=== PATIENT | female | born 1965 | race Caucasian/White ===

== ENCOUNTER 2018-04-26 11:02 | Inpatient (IN) | payer OTHER ==
[~2018-04-26] VITALS: Ht 175.3 cm; Wt 81.2 kg
[~2018-04-26 11:02] MED LIST: ADVIL MIGRAINE200 M1 PO; ALPRAZOLAM0.25 M1 PO; ASPIRIN EC81 M1 PO; ATORVASTATIN CA10 M1 PO; AUGMENTIN 875-1 EACH PO; FIORICET 325 MG1 TAB PO; KETOROLAC TROME10 M1 PO; LYRICA50 MG PO; PERCOCET 325 MG1 TA2 PO; PRINIVIL 5MG5 MG PO; SPIRIVA RESPIMAT4 GM INH; VOLTAREN75 MG PO; ZITHROMAX Z-PA250 M1 PO
--- NOTE | 2018-04-26 12:18 | ED SKIN/ALLERGY COMPLAINT ---
History of Present Illness General Chief Complaint: General Adult Stated Complaint: CELLULITIS TO UPPER LIP,THROBBING TEETH Source: patient, old records Exam Limitations: no limitations Vital Signs & Intake/Output Vital Signs & Intake/Output Vital Signs Date Time Temp Pulse Resp B/P B/P Pulse O2 O2 Flow FiO2 Mean Ox Delivery Rate 04/26 1132 97.4 82 16 159/88 97 Room Air Allergies Coded Allergies: NO KNOWN ALLERGIES (NO) (01/13/11) Reconcile Medications Alprazolam 0.25 MG TABLET 1 TAB PO PRN ANXIETY (Reported) Amoxicillin/Potassium Clav (Augmentin 875-125 Tablet) 875 MG-125 MG TABLET 1 TAB PO BID cellulitis Aspirin (Ecotrin*) 81 MG TABLET.DR 81 MG PO DAILY HEART Ibuprofen (Advil Migraine) 200 MG CAPSULE 2 TAB PO PRN PAIN (Reported) Ketorolac Tromethamine 10 MG TABLET 1 TAB PO Q6P PRN pain Received IV ketorolac in ED Tiotropium Riley (Spiriva Respimat) 2.5 MCG/ACTUATION MIST.INHAL 2 PUFF INH PRN EMPHYSEMA (Reported) Triage Note: STATES THAT SHE WAS SEEN HERE THE OTHER DAY FOR L UPPER LIP INFECTION GIVEN A DOSE OF IV ABT AND SENT HOME ON PO ABT. FEELS HER TEETH ARE HURTING NOW Triage Nurses Notes Reviewed? yes Onset: Gradual Duration: day(s): Timing: recent history Severity: moderate Location: upper lip HPI: 52yo female with hx of HTN presents to ED complaining of worsening upper lip cellulitis. Patient was seen and evaluated here on 04/23 for upper lip cellulitis. At that time she was given dose of IV antibiotics and sent home with Augmentin. Patient states that cellulitis started after a GI procedure at which time she had to wear a mouth guard. The patient says that despite use of antibiotics her cellulitis is worsening, she believes it is spreading and increasing in pain. Patient has been taking PO ketoralac states that as soon as his medication wears off she has increasing throbbing pain. She has had no drainage from the area thus far. Patient says she felt feverish howeverthat she did not have elevated temperature. She reports throbbing dental pain which is new and started yesterday. (Nu GONZALEZ,Susi Pritchett) Past History Travel History Traveled to [place] past 21 day No Medical History Any Pertinent Medical History? see below for history Neurological: NONE EENT: NONE Cardiovascular: hypertension, thrombophlebitis Respiratory: emphysema Gastrointestinal: NONE Hepatic: NONE Renal: NONE Musculoskeletal: NONE Psychiatric: NONE Endocrine: NONE Blood Disorders: NONE Cancer(s): NONE SOLE SEWER HAND/Reproductive: uterine/bladder prolapse History of MRSA: No History of VRE: No History of CDIFF: No Surgical History Surgical History: laser ablation of R leg Uterine thermal ablasion Psychosocial History What is your primary language Namibian Tobacco Use: Never used ETOH Use: denies use Illicit Drug Use: denies illicit drug use Family History Family History, If Any: FATHER (myelodysplastic syndrome). Blood disorder Hx Contributory? No (Susi Solitario) Review of Systems Review of Systems Constitutional: Reports: see HPI. EENTM: Reports: see HPI. Respiratory: Reports: no symptoms. Cardiovascular: Reports: no symptoms. GI: Reports: no symptoms. Genitourinary: Reports: no symptoms. Musculoskeletal: Reports: no symptoms. Skin: Reports: see HPI. Neurological/Psychological: Reports: no symptoms. Hematologic/Endocrine: Reports: no symptoms. Immunologic/Allergic: Reports: no symptoms. All Other Systems: Reviewed and Negative (Susi Solitario) Physical Exam Physical Exam General Appearance: well developed/nourished, no apparent distress, alert, awake Head: atraumatic, normal appearance Eyes: Bilateral: normal appearance. Ears, Nose, Throat: swelling, erythema, induration, and tenderness to upper lip with small crusting pustule present, gingiva appears WNL, posterior pharynx WNL Neck: normal inspection, supple, full range of motion Respiratory: normal breath sounds, no respiratory distress, lungs clear Cardiovascular: regular rate/rhythm Back: normal inspection, normal range of motion Extremities: normal inspection Neurologic/Psych: awake, alert, oriented x 3 Skin: see erythema and pustule as mentioned above (Susi Solitario) Progress Differential Diagnosis: abscess/cellulitis, allergic reaction, anaphylaxis, urticaria Plan of Care: Orders Procedure Date/time Status Heart Healthy Diet 04/26 D Active LACTIC ACID 04/26 1456 Active ED Holding Orders 04/26 1228 Active Admit to inpatient 04/26 1228 Active Vital Signs 04/26 1228 Active Code Status 04/26 1228 Active BLOOD CULTURE 04/26 1157 Active LACTIC ACID 04/26 1156 Active Current Medications Sig/Stephen Start time Last Medication Dose Stop Time Status Admin Ampicillin Sodium/ 3,000 MG ONCE ONE 04/26 1200 AC Sulbactam Sodium 04/26 1229 (Unasyn) Sodium Chloride 100 ML (Normal Saline 0.9%) Laboratory Tests 04/26/18 1206: Lactic Acid Pending Microbiology 04/26 1215 BLOOD: Blood Culture - RECD 04/26 1206 BLOOD: Blood Culture - RECD Patient has worsening cellulitis to upper lip. She has been on Augmentin antibiotics for over 48 hours. Patient also has small pustule, she may require I&D however this is a complex location. Facial cellulitis is limited to upper lip however there is a concern for infection spreading deeper it and no improvement with oral antibiotics. She requires IV antibiotics, repeat labs, follow up with blood cultures, possible I&D. Spoke with Dr. Joy regarding general medicine admission. (Nu GONZALEZ,Susi Pritchett) Departure Departure Disposition: STILL A PATIENT Condition: Stable Clinical Impression Primary Impression: Cellulitis Qualifiers: Site of cellulitis: face Qualified Code: L03.211 - Cellulitis of face Referrals: Nanette Tijerina APRN (PCP/Family) Departure Forms: Customer Survey General Discharge Information Admission Note Spoke With: Kirby Joy MD Documentation of Exam: Documentation of any treatments & extenuating circumstances including Concerns Regarding Discharge (functional status, medication knowledge or non-compliance, living conditions, etc.) that warrant an admission rather than observation: [ Failed outpatient antibiotic treatment of cellulitis to upper lip. This location is complex, if this infection continues to spread there may be complications, she requires IV antibiotics, follow up with blood cultures, repeat labs.] (Susi Solitario) PA/SUPERCALENDER OPERATOR HELPER Co-Sign Statement Statement: ED Attending supervision documentation- [X] I saw and evaluated the patient. I have also reviewed all the pertinent lab results and diagnostic results. I agree with the findings and the plan of care as documented in the PA's/SUPERCALENDER OPERATOR HELPER's documentation. [X] I have reviewed the ED Record and agree with the PA's/SUPERCALENDER OPERATOR HELPER's documentation. [] Additions or exceptions (if any) to the PAs/SUPERCALENDER OPERATOR HELPER's note and plan are summarized below: [FAILED OUTPATINET ANTIBIOTICS FOR CELLULITIS TO HER UPPER LIP. WILL NEED ADMISSION FOR IV ABX.] (Abigail SHANNON,Babar Stout)
--- NOTE | 2018-04-26 15:08 | History & Physical ---
Louisa Tavarez MD 04/26/18 1507: General Information and HPI MD Statement: I have seen and personally examined KATHIE GEORGE and documented this H&P. The patient is a 52 year old F who presented with a patient stated chief complaint of upper lip swelling Source of Information: patient, old records Exam Limitations: no limitations History of Present Illness: This is a 52 year old female with a PMH significant for hypertension, emphysema, current smoker that comes to see us for numbness, paresthesias, swelling of her upper lip after a gastroenterologic procedure one week ago. The patient stated that she had removal/repair of Schatzki's rings and before the procedure, had a mouth guard placed. While the guard was being placed, the patient's upper lip was inadvertently pinched. Afterwards she noticed increasing swelling, induration of her upper lip on the left side. The patient states that when she has had upper endoscopies before, she has mild swelling around the mouth but never to this extent. On Wednesday, 04/23, the patient came to the ED for increased pain and was given an IV dose of antibiotics, and sent home on Augmentin and ketorolac by mouth. The patient states that she has taken the antibiotics faithfully and that the ketorolac has helped the pain but only for a short duration. She states that the pain now is throbbing and includes whole left lower half of her face as well as her gums and upper teeth. She states that the same area has paresthesias and mild numbness. The size of her lip has grown and become more indurated. One morning the patient woke up to blood on her face and pillow. She also complains of subjective fever and chills. She denies any headache, dizziness, hearing or eyesight changes, increased drooling, nausea, vomiting, abdominal pain, chest pain/shortness of breath. The patient has no history of cellulitis or repeated infections. She has no allergies. She denies any new foods or injury to the area other than the upper endoscopy. The patient has had extensive dental work including, root canal, filled cavities. She last saw a dentist 1 month ago and at that time had a cap replaced. She denies any recent bleeding gums. The patient was started on lisinopril 5 mg last Wednesday for newly found hypertension. Allergies/Medications Allergies: Coded Allergies: vancomycin (Severe, RASH, ITCHINESS 04/26/18) Home Med list Ketorolac Tromethamine 10 MG TABLET 1 TAB PO Q6P PRN pain Received IV ketorolac in ED Lisinopril 5 MG TABLET 1 TAB PO DAILY BP (Reported) Compliance With Home Meds: GOOD Past History Travel History Traveled to [place] past 21 day No Medical History Neurological: NONE EENT: NONE Cardiovascular: hypertension Respiratory: emphysema Gastrointestinal: NONE Hepatic: NONE Renal: NONE Musculoskeletal: NONE Psychiatric: NONE Endocrine: NONE Blood Disorders: NONE Cancer(s): NONE PHARMACY INTERN/Reproductive: uterine/bladder prolapse History of MRSA: No History of VRE: No History of CDIFF: No Surgical History Surgical History: laser ablation of R leg Uterine thermal ablasion Past Family/Social History Family History Relations & Conditions if any FATHER (myelodysplastic syndrome). Blood disorder Psychosocial History Who Do You Live With? child Primary Language: Hungarian Smoking Status: Current Everyday Smoker ETOH Use: denies use Illicit Drug Use: denies illicit drug use Functional Ability ADLs Independent: dressing, eating, toileting, bathing. Ambulation: independent IADLs Independent: shopping, housework, finances, food prep, telephone, transportation , medication admin. Review of Systems Review of Systems Constitutional: Reports: chills, fever. EENTM: Reports: see HPI, mouth pain, tooth pain. Cardiovascular: Reports: no symptoms. Respiratory: Reports: no symptoms. GI: Reports: no symptoms. Genitourinary: Reports: no symptoms. Musculoskeletal: Reports: no symptoms. Skin: Reports: see HPI. Neurological/Psychological: Reports: no symptoms. Exam & Diagnostic Data Last 24 Hrs of Vital Signs/I&O Vital Signs Date Time Temp Pulse Resp B/P B/P Pulse O2 O2 Flow FiO2 Mean Ox Delivery Rate 04/26 1629 98.6 83 18 168/83 04/26 1615 98.6 83 18 168/83 98 Room Air 04/26 1132 97.4 82 16 159/88 97 Room Air Intake & Output 04/26 1600 04/26 0800 04/26 0000 Intake Total Output Total Balance Patient 179 lb Weight Weight Reported by Patient Measurement Method Physical Exam General Appearance Alert, Oriented X3, Cooperative, No Acute Distress Skin severe swelling left upper lip, induration, no lesions of the gums or involvement of the teeth on inspection. Patient unable to lift her upper lip secondary to stiffness. She notes loss of sensation under the nose and on the left side of her cheek. Skin Temp/Moisture Exam: Warm/Dry Sepsis Skin Exam (color): Normal for Ethnicity HEENT PERRLA, EOMI, Mucous Membr. moist/pink Neck Supple, No JVD Cardiovascular Regular Rate, Normal S1, Normal S2, No Murmurs Lungs Clear to Auscultation, Normal Air Movement Abdomen Normal Bowel Sounds, Soft, No Tenderness Neurological Normal Speech Extremities No Clubbing, No Cyanosis, No Edema Vascular Normal Pulses, Pulses Symmetrical Sepsis Peripheral Pulse Location: Radial Body Front and Back (Adult) 1) swelling Last 24 Hrs of Labs/Paresh: Laboratory Tests 04/26/18 1456: Lactic Acid Cancelled 04/26/18 1206: Lactic Acid < 0.5 L Microbiology 04/26 1618 BODY FLUID: Body Fluid Culture - ORD 04/26 1618 BODY FLUID: Gram Stain - ORD 04/26 1215 BLOOD: Blood Culture - RECD 04/26 1206 BLOOD: Blood Culture - RECD Assessment/Plan Assessment: This is a 52 year old female with a PMH significant for hypertension, emphysema, current smoker that comes to see us for numbness, paresthesias, swelling of her upper lip after a gastroenterologic procedure one week ago. The patient stated that she had removal/repair of Schatzki's rings and before the procedure, had a mouth guard placed. While the guard was being placed, the patient's upper lip was inadvertently pinched. Afterwards she noticed increasing swelling, induration of her upper lip on the left side. This increased until patient came to see us on 04/23 and was given a course of oral antibiotics and pain killers. However the swelling and pain in her lip continued to grow so she returned to us today. In the ED, temperature 97.4, pulse 82, respiratory rate 16, blood pressure 159/ 88, 97% oxygen saturation on room air. Labs were within normal limits and patient had normal white blood cell count and normal lactic acid. Physical exam showed an indurated left upper lip with a central scab, no abnormality of the gums or teeth and loss of sensation around the lesion on the left side. The patient was given 1 dose of Unasyn in the ED as well as pain medication. We did a CT of the face and sinuses with contrast which showed no fluid collection but did show multiple small cyst associated with the epiglottis and the vallecula at the anterior wall of the pharynx consistent with a thyroglossal duct cyst. Assessment Upper lip swelling secondary to cellulitis versus abscess after endoscopic procedure Hypertension newly on lisinopril Current smoker Plan Admit patient to general medical floors Start patient on Unasyn 3 g every 6 hours and vancomycin 1 g daily We consulted with an ear nose throat surgeon. As there is no drainable collection, he will not perform surgery but did suggest warm compresses and elevation of the head. Patient has no AK I or lactic acidosis and is taking by mouth liquids so we will hold off on fluids. Follow-up vital signs and CBC Watch for fevers and culture blood if fever spike Tylenol 650 every 6 hours when necessary for mild pain and ibuprofen for moderate pain Continue patient on her 5 mg of lisinopril daily for hypertension. Of note, it is unlikely that the swelling is caused by this medication as she started it after the swelling started. Placed patient on a soft diet as she is not able to chew without pain. Patient is full code DVT prophylaxis with Alps only in case there is need for procedure As Ranked By This Provider Problem List: 1. Cellulitis of lip Core Measures/Misc (05/23) Acute Coronary Syndrome ACS Diagnosis: No Congestive Heart Failure Congestive Heart Failure Diagnosis No Cerebrovascular Accident CVA/TIA Diagnosis: No VTE (View Protocol) VTE Risk Factors Age>40 No Mechanical VTE Prophylaxis d/t N/A MechProphylax Ordered No VTE Pharm Prophylaxis d/t Surgical Contraindication Sepsis (View protocol) Sepsis Present: No If YES complete Sepsis Event Note If YES complete Sepsis Event Note Melany Adler 04/26/18 1540: Core Measures/Misc (05/23) Sepsis (View protocol) If YES complete Sepsis Event Note If YES complete Sepsis Event Note Attending MD Review Statement Attending Statement Attending MD Statement: examined this patient, discuss w/resident/PA/EASEMENT MAN, agreed w/resident/PA/EASEMENT MAN, reviewed EMR data (avail), discussed with case mgmt Attending Assessment/Plan: 52 yr old female who recently had a GI procedure during which she had her upper lip nipped with a mouth guard and since then has had some swelling that has been getting worse. pt was seen in the ER on of this month and given iv abx and sent home on po augmentin but the swelling and pain in the area was getting worse so pt presented back to the ER for further eval. Abscess/cellulitis upper lip- will get surgery consult and will put her on iv unasyn for now. will f/u on her clinically. send blood cultures if spikes fever. dw pt the care plan.
--- NOTE | 2018-04-26 15:40 | Admission Certification ---
Admission Certification Certification Statement - As attending physician, I certify that at the time of - admission, based on clinical presentation, severity of - symptoms, need for further diagnostic testing and - therapeutic interventions, and risk of adverse outcomes - without in-hospital treatment, in my clinical assessment, - this patient requires an acute hospital stay for a minimum - of two nights or longer. I have also considered psychsocial - factors such as support system, advanced age, financial - issues, cognitive issues, and failed out-patient treatments, - past re-admission history, safety of patient, and lack of - compliance as applicable. Specific rationale supporting this admission is: failed outpt treatment for upper lip abscess/cellulitis
[2018-04-26] MEDS ORDERED: LISINOPRIL5 M1 PO (15:42)
[2018-04-26] MEDS ORDERED: ALPRAZOLAM0.25 M1 PO (15:42)
[2018-04-26] MEDS ORDERED: PANTOPRAZOLE SO40 M1 PO (15:43)
[2018-04-26 16:15] VITALS: BP 168/83
--- NOTE | 2018-04-26 17:12 | CT SCAN REPORT ---
EXAMINATION: CT SINUS WITH IV CONTRAST CLINICAL INFORMATION: Fever and chills. Induration. Drainage from the indurated site, abscess of the upper lip. COMPARISON: None TECHNIQUE: 95 mL Optiray 320 was injected intravenously. Axial images were obtained through the face. Coronal and sagittal reformatted images are performed at the CT scanner DLP: 800.58 mGy-cm FINDINGS: There is heterogeneous density of the upper lip with thickening and induration of the fat of the upper lip. There is no distinct focal abscess or air collection. There is no radiopaque foreign body. There is no significant lymphadenopathy in the neck. There are small shotty subcentimeter lymph nodes bilaterally. The orbits are unremarkable. The retrobulbar structures are normal. The paranasal sinuses are normally aerated. The partially visualized intracranial structures are normal. There are multiple small cysts related to the pharynx. There is a rounded fluid collections in the left and right vallecula and fluid extending into the epiglottis and along the left aryepiglottic fold. This may be a thyroglossal duct cyst. Largest component of this cystic change measures about 1.5 cm. This has a density measurement of 11 Hounsfield units. IMPRESSION: 1. Induration in the upper lip subcutaneous tissue but no focal abscess or air collection. 2. Multiple small cysts associated with the epiglottis and the vallecula at the anterior wall of the pharynx consistent with a thyroglossal duct cyst. This critical result was discussed with Dr. Kowalski on 04/26/2018, 5:00 PM and it was ascertained that the content and urgency of the report was understood at the time of direct communication.
--- NOTE | 2018-04-26 18:11 | Event Note ---
Event Note Event Note: Just got a call from nurse from ER, that we started vancomycin and she start itching in her chest. i hold vancomycin.
[2018-04-26 21:42] VITALS: BP 138/92
[2018-04-27 06:25] VITALS: BP 138/91
--- NOTE | 2018-04-27 07:52 | Patient Discharge Instructions ---
Discharge Instructions General Discharge Information You were seen/treated for: CELLULITIS Special Instructions: PLEASE FOLLOW UP WITH PCP IN ONE WEEK Diet Continue normal diet: Yes Activity Full Activity/No Limits: Yes Acute Coronary Syndrome Inclusion Criteria At DC or during hospital stay patient has or had the following: ACS DIAGNOSIS No Discharge Core Measures Meds if any: Prescribed or Continued at Discharge Meds if any: NOT Prescribed or Continued at Discharge Congestive Heart Failure Inclusion Criteria At DC or during hospital stay patient has or had the following: CHF DIAGNOSIS No Discharge Core Measures Meds if any: Prescribed or Continued at Discharge Meds if any: NOT Prescribed or Continued at Discharge Cerebrovascular accident Inclusion Criteria At DC or during hospital stay patient has or had the following: CVA/TIA Diagnosis No Discharge Core Measures Meds if any: Prescribed or Continued at Discharge Meds if any: NOT Prescribed or Continued at Discharge Venous thromboembolism Inclusion Criteria VTE Diagnosis No VTE Type NONE VTE Confirmed by (Test) NONE Discharge Core Measures - Per Current guidelines, there needs to be overlap - treatment for the first 5 days of Warfarin therapy. - If discharged on Warfarin prior to 5 days of - overlap therapy, the patient will need to be - assessed for post discharge needs including - *Post discharge parental anticoagulation - *Warfarin and/or parental anticoagulation education - *Follow up date to check INR post discharge At least 5 days overlap therapy as Inpatient No Meds if any: Prescribed or Continued at Discharge Note: Overlap Therapy is Warfarin and Anticoagulant Meds if any: NOT Prescribed or Continued at Discharge
--- NOTE | 2018-04-27 07:53 | PN- Housestaff ---
Daysi SHANNON,Louisa 04/27/18 0753: Subjective Follow-up For: Left upper lip cellulitis Complaints: no complaints Subjective: Patient seen and examined. She states that she continues to have pain in her upper lip but that overnight it has drained a little bit with decreased stiffness. Her vitals are stable and she is afebrile. Otherwise she has no complaints. Review of Systems Constitutional: Reports: no symptoms. EENTM: Reports: no symptoms. Cardiovascular: Reports: no symptoms. Respiratory: Reports: no symptoms. Gastrointestinal: Reports: no symptoms. Genitourinary: Reports: no symptoms. Musculoskeletal: Reports: no symptoms. Skin: Reports: lesions. Neurological/Psychological: Reports: no symptoms. Hematologic/Endocrine: Reports: no symptoms. Objective Last 24 Hrs of Vital Signs/I&O Vital Signs Date Time Temp Pulse Resp B/P B/P Pulse O2 O2 Flow FiO2 Mean Ox Delivery Rate 04/27 1417 98.3 68 18 122/86 97 Room Air 04/27 0625 98.3 62 20 138/91 99 04/26 2147 Room Air 04/26 2142 97.8 73 20 138/92 97 Room Air 04/26 2045 97.8 70 18 156/66 97 Room Air Intake & Output 04/27 1600 04/27 0800 04/27 0000 Intake Total 730 240 240 Output Total Balance 730 240 240 Intake, IV 130 Intake, Oral 600 240 240 Number 0 Bowel Movements Patient 179 lb Weight Weight Reported by Patient Measurement Method Physical Exam General Appearance: Alert, Oriented X3, Cooperative, No Acute Distress Skin: No Rashes, continued upper lip swelling less than yesterday, less pain. Skin Temp/Moisture Exam: Warm/Dry Sepsis Skin Exam (color): Normal for Ethnicity HEENT: Atraumatic, PERRLA, EOMI, Mucous Membr. moist/pink Cardiovascular: Regular Rate, Normal S1, Normal S2, No Murmurs Lungs: Clear to Auscultation, Normal Air Movement Abdomen: Normal Bowel Sounds, Soft, No Tenderness Neurological: Normal Speech Extremities: No Clubbing, No Cyanosis, No Edema Vascular: Normal Pulses, Pulses Symmetrical Current Medications: Current Medications Sig/Stephen Start time Last Medication Dose Route Stop Time Status Admin Acetaminophen 650 MG Q4P PRN 04/26 1545 AC 04/27 PO 1247 Ampicillin Sodium/ 0 .STK-MED ONE 04/26 1944 DC Sulbactam Sodium .ROUTE Ampicillin Sodium/ 3,000 MG Q6H 04/26 1900 AC 04/27 Sulbactam Sodium IV 1239 Sodium Chloride 100 ML Ibuprofen 600 MG Q4P PRN 04/26 1600 AC 04/26 PO 2204 Lisinopril 5 MG 1900 04/27 1900 AC PO Lisinopril 5 MG DAILY 04/26 1555 DC 04/26 PO 1629 Nicotine 7 MG Q24 04/26 1531 AC TOP Vancomycin HCl 1,000 MG DAILY 04/26 1556 MI 04/26 Sodium Chloride 250 ML IV 1614 Last 24 Hrs of Lab/Paresh Results Last 24 Hrs of Labs/Mics: Laboratory Tests 04/27/18 0642: Anion Gap 3 L, Estimated GFR > 60, BUN/Creatinine Ratio 11.7, CBC w Diff NO MAN DIFF REQ, RBC 4.08 L, MCV 87.1, MCH 29.5, MCHC 33.9, RDW 14.3, MPV 8.3, Gran % 49.9, Lymphocytes % 37.3, Monocytes % 9.2, Eosinophils % 2.8, Basophils % 0.8, Absolute Granulocytes 2.7, Absolute Lymphocytes 2.0, Absolute Monocytes 0.5, Absolute Eosinophils 0.2, Absolute Basophils 0 Assessment/Plan Assessment: This is a 52 year old female with a PMH significant for hypertension, emphysema, current smoker that comes to see us for numbness, paresthesias, swelling of her upper lip after a gastroenterologic procedure one week ago. The patient stated that she had removal/repair of Schatzki's rings and before the procedure, had a mouth guard placed. While the guard was being placed, the patient's upper lip was inadvertently pinched. Afterwards she noticed increasing swelling, induration of her upper lip on the left side. This increased until patient came to see us on 04/23 and was given a course of oral antibiotics and pain killers. However the swelling and pain in her lip continued to grow so she returned to us today. In the ED, temperature 97.4, pulse 82, respiratory rate 16, blood pressure 159/ 88, 97% oxygen saturation on room air. Labs were within normal limits and patient had normal white blood cell count and normal lactic acid. Physical exam showed an indurated left upper lip with a central scab, no abnormality of the gums or teeth and loss of sensation around the lesion on the left side. The patient was given 1 dose of Unasyn in the ED as well as pain medication. We did a CT of the face and sinuses with contrast which showed no fluid collection but did show multiple small cyst associated with the epiglottis and the vallecula at the anterior wall of the pharynx consistent with a thyroglossal duct cyst. Assessment Upper lip swelling secondary to cellulitis versus abscess after endoscopic procedure Hypertension newly on lisinopril Current smoker Plan Admit patient to general medical floors Start patient on Unasyn 3 g every 6 hours and vancomycin 1 g daily, likely discharge tomorrow on p.o. medications We consulted with an ear nose throat surgeon. As there is no drainable collection, he will not perform surgery but did suggest warm compresses and elevation of the head. We will refer to him for incidental finding of "thyroglossal duct cyst". Patient has no AK I or lactic acidosis and is taking by mouth liquids so we will hold off on fluids. Follow-up vital signs and CBC Watch for fevers and culture blood if fever spike Tylenol 650 every 6 hours when necessary for mild pain and ibuprofen for moderate pain Continue patient on her 5 mg of lisinopril daily for hypertension. Of note, it is unlikely that the swelling is caused by this medication as she started it after the swelling started. Placed patient on a soft diet as she is not able to chew without pain. Patient is full code DVT prophylaxis with Alps only in case there is need for procedure Problem List: 1. Cellulitis of lip Pain Ratin Pain Location: upper lip Pain Goal: Pain 4 or less Pain Plan: as needed Tomorrow's Labs & Rationales: none Melany Adler 04/27/18 1404: Attending MD Review Statement Attending Statement Attending MD Statement: examined this patient, discuss w/resident/PA/CAREER AGENT, agreed w/resident/PA/CAREER AGENT, reviewed EMR data (avail), discussed with nursing, discussed with case mgmt Attending Assessment/Plan: Upper lip cellulitis with failed outpt therapy- cont iv abx , CT done shows no abscess. if doing better by tomorrow will dc on po abx. cont warm packs and iv abx for now.
[2018-04-27 08:14] LABS: ABSOLUTE BASOPHIL COUNT 0 /CUMM (0.0-0.2); ABSOLUTE EOSINOPHIL COUNT 0.2 /CUMM (0.0-0.7); ABSOLUTE GRANULOCYTE CT 2.7 /CUMM (1.4-6.5); ABSOLUTE MONOCYTE COUNT 0.5 /CUMM (0.10-0.60); BASOPHIL % 0.8 % (0.0-2.0); EOSINOPHIL % 2.8 % (0-5); GRANULOCYTE % 49.9 % (42.2-75.2); HEMATOCRIT 35.5 % (37-47); MEAN CORPUSCULAR HGB 29.5 PG (27.0-31.0); MEAN CORPUSCULAR HGB CONC 33.9 G/DL (33.0-37.0); MEAN CORPUSCULAR VOLUME 87.1 FL (81.0-99.0); MEAN PLATELET VOLUME 8.3 FL (7.4-10.4); PLATELET COUNT 226 /CUMM (130-400); RBC DISTRIBUTION WIDTH 14.3 % (11.5-14.5); RED BLOOD CELL CT 4.08 /CUMM (4.20-5.40); WHITE BLOOD CELL COUNT 5.3 /CUMM (4.8-10.8)
[2018-04-27 14:17] VITALS: BP 122/86
[2018-04-27 21:24] VITALS: BP 140/80
[2018-04-28 06:17] VITALS: BP 130/88
--- NOTE | 2018-04-28 08:13 | PN- Housestaff ---
Daysi SHANNON,Louisa 04/28/18 0813: Subjective Follow-up For: left upper lip cellutlits Subjective: Patient seen and examined. Her lip is less stiff and painful. She has less paresthesias and numbness, no throbbing of her gums anymore. She is eager to leave. Her vitals are stable. Review of Systems Constitutional: Reports: no symptoms. Cardiovascular: Reports: no symptoms. Respiratory: Reports: no symptoms. Gastrointestinal: Reports: no symptoms. Skin: Reports: lesions. Objective Last 24 Hrs of Vital Signs/I&O Vital Signs Date Time Temp Pulse Resp B/P B/P Pulse O2 O2 Flow FiO2 Mean Ox Delivery Rate 04/28 06 97.7 64 18 130/88 97 Room Air 04/27 2124 97.9 66 16 140/80 97 Room Air 04/27 2006 140/80 04/27 1417 98.3 68 18 122/86 97 Room Air Intake & Output 04/28 1600 04/28 0800 04/28 0000 Intake Total 400 130 130 Output Total Balance 400 130 130 Intake, IV 0 130 130 Intake, Oral 400 Number 0 Bowel Movements Physical Exam General Appearance: Alert, Oriented X3, Cooperative, No Acute Distress Skin: decreased swelling of upper lip, dry crust over drainage site. Less pain on palpation. Skin Temp/Moisture Exam: Warm/Dry Cardiovascular: Regular Rate, Normal S1, Normal S2, No Murmurs Lungs: Clear to Auscultation, Normal Air Movement Abdomen: Normal Bowel Sounds, Soft, No Tenderness Extremities: No Clubbing, No Cyanosis, No Edema, Normal Pulses Current Medications: Current Medications Sig/Stephen Start time Last Medication Dose Route Stop Time Status Admin Acetaminophen 650 MG Q4P PRN 04/26 1545 DCD 04/28 PO 0720 Ampicillin Sodium/ 3,000 MG Q6H 04/26 1900 DCD 04/28 Sulbactam Sodium IV 0719 Sodium Chloride 100 ML Ibuprofen 600 MG Q4P PRN 04/26 1600 DCD 04/26 PO 2204 Lisinopril 5 MG 1900 04/27 1900 DCD 04/27 PO 2006 Lisinopril 5 MG DAILY 04/26 1555 DC 04/26 PO 1629 Nicotine 7 MG Q24 04/26 1531 DCD TOP Assessment/Plan Assessment: This is a 52 year old female with a PMH significant for hypertension, emphysema, current smoker that comes to see us for numbness, paresthesias, swelling of her upper lip after a gastroenterologic procedure one week ago. The patient stated that she had removal/repair of Schatzki's rings and before the procedure, had a mouth guard placed. While the guard was being placed, the patient's upper lip was inadvertently pinched. Afterwards she noticed increasing swelling, induration of her upper lip on the left side. This increased until patient came to see us on 04/23 and was given a course of oral antibiotics and pain killers. However the swelling and pain in her lip continued to grow so she returned to us today. In the ED, temperature 97.4, pulse 82, respiratory rate 16, blood pressure 159/ 88, 97% oxygen saturation on room air. Labs were within normal limits and patient had normal white blood cell count and normal lactic acid. Physical exam showed an indurated left upper lip with a central scab, no abnormality of the gums or teeth and loss of sensation around the lesion on the left side. The patient was given 1 dose of Unasyn in the ED as well as pain medication. We did a CT of the face and sinuses with contrast which showed no fluid collection but did show multiple small cyst associated with the epiglottis and the vallecula at the anterior wall of the pharynx consistent with a thyroglossal duct cyst. Assessment Upper lip swelling secondary to cellulitis versus abscess after endoscopic procedure Hypertension newly on lisinopril Current smoker Plan Admit patient to general medical floors Start patient on Unasyn 3 g every 6 hours and vancomycin 1 g daily, will discharge today on Augmentin 875 mg twice a day which patient was on previously, no need for new prescription. Patient will take this medication for 5 more days. We consulted with an ear nose throat surgeon. As there is no drainable collection, he will not perform surgery but did suggest warm compresses and elevation of the head. We will refer to him for incidental finding of "thyroglossal duct cyst". Patient has no XOCHILT or lactic acidosis and is taking by mouth liquids so we held off on fluids. Follow-up vital signs and CBC Watch for fevers and culture blood if fever spike Tylenol 650 every 6 hours when necessary for mild pain and ibuprofen for moderate pain Continue patient on her 5 mg of lisinopril daily for hypertension. Of note, it is unlikely that the swelling is caused by this medication as she started it after the swelling started. Okay for patient to take an regular diet if able area Patient is full code DVT prophylaxis with Alps Problem List: 1. Cellulitis of lip Pain Ratin Pain Location: upper lip Pain Goal: Remain pain free Pain Plan: tylenol Tomorrow's Labs & Rationales: none NayelySlavaamairani 04/28/18 1448: Attending MD Review Statement Attending Statement Attending MD Statement: examined this patient, discuss w/resident/PA/SCRAP HOOKER, agreed w/resident/PA/SCRAP HOOKER, reviewed EMR data (avail), discussed with nursing, discussed with case mgmt Attending Assessment/Plan: cellulitis- upper lip- pt being dced home on augmentin for 5 more days. dw pt the care plan.
[2018-04-28] MEDS ORDERED: AUGMENTIN 875-1 EACH PO (09:01)
--- NOTE | 2018-04-28 14:11 | Event Note ---
Event Note Event Note: Patient was discharged without being given the referral for follow-up of the "thyroglossal duct cyst" found on CT of the sinuses. I have placed a call to the patient and spoke with her, given her the number for Dr. Simon Howe, ENT , who I spoke with regarding her left upper lip cellulitis earlier in her admission. The patient will follow-up with him. Of note, the patient has a history of thyroid cysts that she does follow and know about already.
== END 2018-04-28 10:00 | DRG 159 ==
LOC: ERH 11:02 → 2NB 12:28 → ERHI 12:28 → ENRESERV 20:49 → ENTRNSPT 21:09 → EDTRNSPTSTS 21:24 → EDTRNSPT 21:26 → 2NB 21:35 → CMPTRNSPT 21:45 → 2NB 04-28 10:00
PROVIDERS: Student in an Organized Health Care Education/Training Program
DX: K12.2 Cellulitis and abscess of mouth (principal); F17.210 Nicotine dependence, cigarettes, uncomplicated; I10 Essential (primary) hypertension
CPT/HCPCS: 2NBP; 87075; 36592; 82436; 87040; 96365; 96375; J0131; J1200; J3370; J7040